=== PATIENT | female | born 2000 | race Caucasian/White ===

== ENCOUNTER 2023-11-09 18:55 | Emergency (ER) | payer BC ==
[~2023-11-09] VITALS: Ht 154.9 cm; Wt 78.3 kg
[2023-11-09 20:16] LABS: BASO # 0.1 10^3/uL (0.0-0.2); BASO % 0.4 % (0.0-1.0); EOS # 0.1 10^3/uL (0.0-0.5); EOS % 0.8 % (0.0-3.0); HEMOGLOBIN 13.5 g/dl (12.0-15.5); LYMPH # 2.4 10^3/uL (1.5-5.0); LYMPH % 20.2 % (24.0-44.0); MEAN CORPUSCULAR HGB CONC 33.8 g/dl (32.0-36.5); MEAN CORPUSCULAR VOLUME 85.8 fl (80.0-96.0); MONO # 0.9 10^3/uL (0.0-0.8); MONO % 7.9 % (2.0-8.0); NEUTROPHILS # 8.2 10^3/uL (1.5-8.5); NEUTROPHILS % 70.4 % (36.0-66.0); PLATELET COUNT, AUTOMATED 327 10^3/uL (150-450); RED BLOOD COUNT 4.66 10^6/uL (4.00-5.40); WHITE BLOOD COUNT 11.6 10^3/uL (4.0-10.0)
[2023-11-09 20:37] LABS: BLOOD UREA NITROGEN 10 MG/DL (9-23); CALCIUM LEVEL 9.5 MG/DL (8.5-10.1); CARBON DIOXIDE LEVEL 24 MMOL/L (20-31); CHLORIDE LEVEL 107 MMOL/L (98-107); CREATININE FOR GFR 0.73 MG/DL (0.55-1.30); GLOMERULAR FILTRATION RATE > 60.0 (>60); GLUCOSE, FASTING 89 MG/DL (60-100); POTASSIUM SERUM 4.2 MMOL/L (3.5-5.1); SODIUM LEVEL 138 MMOL/L (136-145)
[2023-11-09 20:51] LABS: HCG, SERUM QUANTITATIVE 33519.8 MIU/ML (<4.2)
[2023-11-09 23:34] VITALS: BP 149/70; TEMP 98.6; O2SAT 100
[2023-11-10] MEDS ORDERED: METR0.7526 TOP (01:30)
[2023-11-10] MEDS: metroNIDAZOLE 70GM VAGINAL GEL PV ONE (01:38)
[2023-11-10 02:03] LABS: Trichomonas vaginalis (AMP) NOT DETECTED (NEGATIVE)
[2023-11-10 02:26] LABS: GC DNA AMPLIFICATION NEGATIVE (NEGATIVE)
== END 2023-11-10 01:48 | disposition home or self-care (01) ==
LOC: M ED 18:55
DX: O20.0 Threatened abortion (principal); O23.591 Infection of other part of genital tract in pregnancy, first trimester; Z3A.01 Less than 8 weeks gestation of pregnancy; Z79.899 Other long term (current) drug therapy